=== PATIENT | male | born 2000 | race Caucasian/White ===

== ENCOUNTER 2022-05-19 12:29 | Emergency (ER) | payer OTHER ==
[~2022-05-19] VITALS: Ht 180.3 cm; Wt 93.8 kg
[2022-05-19] MEDS ORDERED: FLON1SPR NARES (16:43)
[2022-05-19 16:51] VITALS: BP 143/74
== END 2022-05-19 16:55 | disposition home or self-care (01) ==
LOC: M ED 12:29
DX: R51.9 Headache, unspecified (principal); J30.9 Allergic rhinitis, unspecified